=== PATIENT | male | born 1955 | race Caucasian/White ===

== ENCOUNTER 2019-04-07 14:00 | Emergency (ER) | payer OTHER, SELFPAY ==
[2019-04-07 14:02] VITALS: BP 144/72; PULSE 63; RESP 20; TEMP 36.7; O2SAT 95
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
== END 2019-04-07 16:18 | disposition home or self-care (01) ==
PROVIDERS: Emergency Provider Emergency Medicine; PCP Nurse Practitioner Family
DX: S62.101A Fracture of unspecified carpal bone, right wrist, initial encounter for closed fracture (principal); S20.212A Contusion of left front wall of thorax, initial encounter; V18.0XXA Pedal cycle driver injured in noncollision transport accident in nontraffic accident, initial encounter
CPT/HCPCS: 29125; 71100; 73110; 73130; 99282; 99283